=== PATIENT | male | born 1985 | race Hispanic/Latino ===

== ENCOUNTER 2025-01-26 20:06 | Emergency (ER) | payer SELFPAY ==
[~2025-01-26] VITALS: Ht 175.3 cm; Wt 72.6 kg
[2025-01-26] MEDS: KETOROLAC TROMETHAMINE 30 MG/ML VIAL IV STA (21:25)
[2025-01-26 21:29] LABS: BASOPHILS % 0.4 % (0.0-1.0); EOSINOPHILS % 2.0 % (0.0-6.0); LYMPHOCYTES % 21.8 % (18.0-39.1); MONOCYTES % 7.3 % (4.4-11.3); NEUTROPHILS % 68.1 % (38.7-80.0); RED CELL DISTRIBUTION WIDTH 12.1 % (11.7-14.4)
[2025-01-26 21:41] LABS: LEUKOCYTE ESTERASE ,URINE NEGATIVE (NEGATIVE); PROTEIN,URINE DIPSTICK NEGATIVE (NEGATIVE); URINE UROBILINOGEN 0.2 mg/dL (0.2 - 1); WBC,URINE (MAN) 0-5 /HPF (0-5)
[2025-01-26 21:42] LABS: EPITHELIAL CELLS,URINE FEW /LPF
[2025-01-26 21:51] LABS: EST GLOMERULAR FILTRATION RATE 98.0 ML/MIN (>=60)
[2025-01-26 22:15] VITALS: PULSE 98; RESP 17; TEMP 98.8
[2025-01-26 22:25] VITALS: BP 99/81; PULSE 98; RESP 17; TEMP 98.8; O2SAT 100
== END 2025-01-26 22:23 | disposition home or self-care (01) ==
LOC: ER 20:52
DX: R10.32 Left lower quadrant pain (principal); Z72.0 Tobacco use
CPT/HCPCS: 36415; 74176; 80053; 81001; 85025; 99284; J1885